=== PATIENT | female | born 1985 | race Asian ===

== ENCOUNTER → 2020-03-18 10:04 | Outpatient (CLI) | payer BC, SELFPAY ==
[2020-03-18 09:35] VITALS: BMI 37.9
[2020-03-18 12:51] LABS: Thyroid Stim Hormone (TSH) 1.95 uIU/mL (0.358-3.74)
== END ==
PROVIDERS: PCP Student in an Organized Health Care Education/Training Program; Referring Provider Internal Medicine Endocrinology, Diabetes & Metabolism; Visit Provider Internal Medicine Endocrinology, Diabetes & Metabolism
DX: E03.8 Other specified hypothyroidism (principal); E06.3 Autoimmune thyroiditis
CPT/HCPCS: 36415; 84439; 84443

== ENCOUNTER → 2021-07-22 09:51 | Outpatient (CLI) | payer BC, SELFPAY ==
[2021-07-22 12:00] LABS: Hematocrit 38.4 % (37-47); Hemoglobin 12.4 g/dL (12.0-15.0)
[2021-07-22 12:23] LABS: Vitamin B12 1049 pg/mL (211-911); Vitamin D,25 Hydroxy 54.3 ng/mL
[2021-07-22 12:24] LABS: Ferritin 63 ng/mL (8-252); T4 Free Direct 1.27 ng/dL (0.76-1.46); Thyroid Stim Hormone (TSH) 0.66 uIU/mL (0.358-3.74)
== END ==
PROVIDERS: PCP Student in an Organized Health Care Education/Training Program; Referring Provider Internal Medicine Endocrinology, Diabetes & Metabolism; Visit Provider Internal Medicine Endocrinology, Diabetes & Metabolism
DX: E03.8 Other specified hypothyroidism (principal); E06.3 Autoimmune thyroiditis; R53.81 Other malaise; R53.83 Other fatigue; E55.9 Vitamin D deficiency, unspecified
CPT/HCPCS: 36415; 82306; 82607; 82728; 84439; 84443; 85014; 85018

== ENCOUNTER → 2022-07-21 | Outpatient (CLI) | payer BC, SELFPAY ==
[2022-07-21 14:32] LABS: T4 Free Direct 1.31 ng/dL (0.76-1.46); Thyroid Stim Hormone (TSH) 0.48 uIU/mL (0.358-3.74)
== END | disposition home or self-care (01) ==
LOC: BIMLAB 10:30
PROVIDERS: PCP Student in an Organized Health Care Education/Training Program; Referring Provider Internal Medicine Endocrinology, Diabetes & Metabolism; Visit Provider Internal Medicine Endocrinology, Diabetes & Metabolism
DX: E03.8 Other specified hypothyroidism (principal); E06.3 Autoimmune thyroiditis
CPT/HCPCS: 36415; 84439; 84443

== ENCOUNTER 2023-01-19 22:03 | Emergency (ER) | payer BC, SELFPAY ==
[2023-01-19 22:04] VITALS: BP 194/101; PULSE 100; RESP 18; TEMP 36.4; O2SAT 99; BMI 23.9
--- NOTE | 2023-01-19 22:54 | CT_ITS ---
INDICATION: headache EXAMINATION: CT BRAIN - CT Head or Brain W/O Contrast Injection TECHNIQUE: Multiple axial images were obtained of the head without intravenous contrast. A radiation dose optimization technique was used for this scan. IV Contrast dosage and agent: None. RADIATION DOSAGE (If Supplied By Facility): CTDIvol = ( 44.99 ) mGy, DLP = ( 779.24 ) mGycm COMPARISON: FINDINGS: BRAIN PARENCHYMA: No intra- or extra-axial hemorrhage. No evidence of acute infarct. No intracranial mass or mass effect. There is preservation of the kelley/white matter interface. Posterior fossa structures are unremarkable. CSF SPACES: Appropriate for age. No hydrocephalus. Basal cisterns are patent. CALVARIUM, SKULL BASE, PARANASAL SINUSES AND MASTOID AIR CELLS: Clear. No discrete lytic or blastic abnormalities. ORBITS: Both globes, extraocular muscles, optic nerves and retrobulbar fat appear unremarkable. ASPECTS Score for Acute Strokes: 10 CT/Brain/Head without Contrast IMPRESSION: Negative Brain CT without contrast. Electronically Signed: Fabian Ponce MD at 23:55 EDT ,
[2023-01-19] MEDS: Ketorolac 30 MG/ML Syringe IV (23:15)
[2023-01-19] MEDS: DiphenhydrAMINE 50 MG/ML Syringe 25 MG IV (23:15)
[2023-01-19] MEDS: Metoclopramide 10 MG/2 ML Vial IV (23:15)
[2023-01-19 23:25] LABS: Absolute Lymphocyte Count 2.58 X10^3/uL (0.83-4.51); Absolute Neutrophil Count 6.5 X10^3/uL (2.0-7.7); Basophil# 0.09 X10^3/uL; Basophil% 0.9 % (0-1); Hematocrit 44.8 % (37-47); Hemoglobin 14.8 g/dL (12.0-15.0); Lymphocyte # 2.58 X10^3/ul (0.83-4.51); Lymphocyte % 26.1 % (19-41); Mean Corpuscular Hgb 28.2 pg (27.0-32.0); Mean Corpuscular Volume 85.3 fL (81-99); Mean Platelet Vol. 8.4 fl (6.2-12.0); Monocyte# 0.57 X10^3/uL; Monocyte% 5.8 % (0-10); NRBC Flagged by Analyzer 0 % (0-5); Neutrophil # 6.52 X10^3/uL (2.7-7.7); Neutrophil % 65.8 % (47-70); Platelet Count 329 K/mm3 (150-450); RBC Distribution Width CV 12.1 % (11.6-14.6); RBC Distribution Width SD 37.7 fl (35.1-43.9); Red Blood Count 5.25 M/mm3 (4.2-5.4); White Blood Count 9.9 K/mm3 (4.4-11.0)
[2023-01-19 23:42] LABS: Anion Gap 4 (5-15); BUN 11 mg/dL (7-18); BUN/Creat Ratio 15.7 RATIO (10-20); Calcium,Total 9.5 mg/dL (8.5-10.1); Chloride 100 mmol/L (98-107); EST Glomerular Filtration Rate 99 mL/min (>60); Est Glom Filt Rate - Afr Amer 119 mL/min (>60); Glucose 112 mg/dL (74-106); Potassium 3.3 mmol/L (3.5-5.1); Sodium Level 135 mmol/L (136-145); Troponin-I HS 4 pg/mL (3.0-54.0)
[2023-01-20 00:22] VITALS: BP 162/87; PULSE 64; RESP 14; O2SAT 100
[2023-01-20 00:35] VITALS: BP 146/82
--- NOTE | 2023-01-20 00:54 | EX.ED.DYSGE1 ---
HPI History of Present Illness Chief Complaint: General Illness Narrative Narrative: Patient is a 38-year-old female with past medical history of GERD and Scott's thyroiditis. She states she has been fighting sinus issues for quite some time. She finally went to her doctor and was placed on Afrin and Zithromax and Coricidin. She states she has a headache now and her blood pressure has been elevated throughout the day and has been reaching almost 200 systolically. She states she does not have a history of hypertension but she is concerned about a stroke because of the high value and with this comes in for evaluation [facility] Medical History GERD (gastroesophageal reflux disease) H/O blood clots Scott's thyroiditis IBS (irritable bowel syndrome) Malaise and fatigue Home Medications norgestimate 0.25 mg-ethinyl estradiol 35 mcg tablet (Sprintec (28)) 1 tab PO DAILY 07/22/21 [History Last Taken Unknown] omeprazole 40 mg capsule,delayed release 40 mg PO DAILY #30 caps 07/22/21 [Rx Last Taken Unknown] levothyroxine 88 mcg tablet 88 mcg PO DAILY #90 tabs 07/21/22 [Rx Last Taken Unknown] hydrocodone-acetaminophen 5-325mg 5mg-325mg 1 tab PO Q6H PRN PRN Pain 3 days #12 TABLETS 01/20/23 [Rx Last Taken Unknown] ondansetron 4 mg disintegrating tablet 4 mg PO TID PRN nausea and vomiting #21 tabs 01/20/23 [Rx Last Taken Unknown] Allergy/AdvReac Type Severity Reaction Status Date / Time morphine Allergy Vomiting/Di Verified 07/21/22 09:49 zziness Corticosteroids AdvReac Nausea Verified 01/19/23 22:04 (Glucocorticoids) [steroids] Family History Unknown Thyroid disorder Mother Thyroid disorder Surgical History H/O: Social History Smoking Status: Never smoker alcohol intake: never substance use type: does not use what type of physical activity do you participate in: yoga frequency: daily ROS ROS ED Constitutional Constitutional ED: Denies chills or fever(s) Eyes Eyes: Denies change in vision ENT ENT ED: Reports rhinorrhea and other Details: Positive sinus pain ; Denies sore throat Cardiovascular Cardiovascular: Denies chest pain Respiratory/Chest Respiratory/Chest: Denies cough or dyspnea Gastrointestinal Gastrointestinal: Denies abdominal pain, diarrhea, nausea or vomiting Genitourinary Genitourinary ED: Denies dysuria Musculoskeletal Musculoskeletal: Denies back pain, myalgias or neck pain Integumentary Denies rash Neurologic Neurologic: Reports headache(s); Denies paresthesias or weakness Hematologic/Lymphatic Hematologic/Lymphatic: Denies easy bleeding or easy bruising EXAM Physical Exam Const Vital Signs: 01/19/23 22:04 01/20/23 00:22 01/20/23 00:35 Temperature 97.6 F L Temperature Source Temporal Pulse Rate 100 64 Respiratory Rate 18 14 Blood Pressure 194/101 H 162/87 H 146/82 H Blood Pressure Mean 132 112 103 Pulse Ox 99 100 Oxygen Delivery Method Room Air Room Air 01/20/23 01:04 Temperature Temperature Source Pulse Rate 77 Respiratory Rate 15 Blood Pressure 126/82 H Blood Pressure Mean Pulse Ox 98 Oxygen Delivery Method Positive well nourished and well developed General Appearance ED: well developed HEENT Reports moist mucous membranes HEENT Narrative: Cobblestoning noted in the posterior pharynx consistent with sinus drainage but no secondary changes to suggest infection Minimal pain with palpation over top the maxillary ethmoid and frontal sinuses Eyes PERRL and EOMs intact bilaterally Neck supple Neck Narrative: No nuchal rigidity or meningeal signs present Resp normal respiratory effort and clear to auscultation bilaterally Cardio regular rate and regular rhythm GI normal to inspection, nondistended, normoactive bowel sounds, non-tender, non-distended and no masses GI Narrative: No pulsatile mass Auscultation: normoactive bowel sounds Palpation: soft Extremity normal to inspection Neuro oriented x3 and CN's II-XII intact bilaterally Neuro Narrative: Cranial nerves II through XII are grossly intact there are no focal neurologic deficits. No pronator drift no dysmetria no truncal ataxia. NIH stroke scale score of 0 Sensorium / Orientation: alert Psych mental status grossly normal Skin no rashes or lesions noted MDM MDM MDM Narrative Medical decision making narrative: Patient presented to the ER hypertensive but has a normal neurologic exam and no signs of hypertensive encephalopathy or endorgan damage by exam or history of present illness. Differential diagnosis includes new onset hypertension acute kidney injury sinusitis acute coronary syndrome and tension headache. Secondary to this a basic work-up was obtained. Labs showed a normal troponin at 4 with no signs of acute kidney injury or electrolyte deranged. Head CT revealed no clinically significant findings and after treatment of the patient's headache her blood pressure improved indicating that the hypertension was driven by pain and not truly hypertensive crisis. Therefore there is no need to start antihypertensive medications. On reevaluation the patient's symptoms have improved her neuro exam remains normal and with negative work-up and improvement of symptoms/BP she is otherwise safe for discharge History & Record Review Discussion w/independent historian: Patient and Significant other Lab Data Attestation: I reviewed the patient's lab results. Labs: Laboratory Results - last 24 hr 01/19/23 01/19/23 23:15 23:15 WBC 9.9 RBC 5.25 Hgb 14.8 Hct 44.8 MCV 85.3 MCH 28.2 MCHC 33.0 RDW Std Deviation 37.7 RDW Coeff of Shayan 12.1 Plt Count 329 MPV 8.4 Immature Gran % (Auto) 0.400 Neut % (Auto) 65.8 Lymph % (Auto) 26.1 [place] % (Auto) 5.8 Eos % (Auto) 1.0 Baso % (Auto) 0.9 Absolute Neuts (auto) 6.5 Absolute Lymphs (auto) 2.58 Nucleated RBC % 0 Sodium 135 L Potassium 3.3 L Chloride 100 Carbon Dioxide 31.0 Anion Gap 4 L BUN 11 Creatinine 0.70 Estim Creat Clear Calc 77.50 Est GFR (MDRD) Af Amer 119 Est GFR (MDRD) Non-Af 99 BUN/Creatinine Ratio 15.7 Glucose 112 H Calcium 9.5 Troponin I High Sens 4 Radiography Diagnostic Testing: Clinical Impression(s) from Imaging Studies Brain CT 01/19/23 22:54 IMPRESSION: Negative Brain CT without contrast. 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, Sinusitis, Cephalgia Instructions: Blood Pressure Check Steps, ED Hypertension, To Be Confirmed Prescriptions: New ondansetron 4 mg tablet,disintegrating 4 mg PO TID PRN (Reason: nausea and vomiting) Qty: 21 0RF hydrocodone-acetaminophen 5-325 mg tablet 1 tab PO Q6H PRN PRN (Reason: Pain) 3 Days Qty: 12 0RF No Action norgestimate-ethinyl estradiol [Sprintec (28)] 0.25-35 mg-mcg tablet 1 tab PO DAILY omeprazole 40 mg capsule,delayed release(DR/EC) 40 mg PO DAILY Qty: 30 1RF levothyroxine 88 mcg tablet 88 mcg PO DAILY Qty: 90 1RF Primary Care Provider: HIMANSHU MCNEIL Referrals: HIMANSHU MCNEIL [Other] Activity Restrictions/Additional Instructions: Your work-up today shows no signs of cardiac kidney or neurologic damage from the blood pressure being elevated. I do feel is related to pain response and not true hypertension. Continue to monitor your blood pressure and return to the ER should you have any further concerns Disposition Disposition: Home, Self Care Discharge Date/Time: 01/20/23 01:05
[2023-01-20 01:04] VITALS: BP 126/82; PULSE 77; RESP 15; O2SAT 98
== END 2023-01-20 01:05 | disposition home or self-care (01) ==
PROVIDERS: Emergency Provider Emergency Medicine; Visit Provider Emergency Medicine
DX: I10 Essential (primary) hypertension (principal); E06.3 Autoimmune thyroiditis; J32.9 Chronic sinusitis, unspecified; R51.9 Headache, unspecified; E03.9 Hypothyroidism, unspecified; K21.9 Gastro-esophageal reflux disease without esophagitis; Z79.890 Hormone replacement therapy; Z79.899 Other long term (current) drug therapy
CPT/HCPCS: 70450; 80048; 84484; 85025; 93005; 96374; 96375; 99283; J7050; A4216

== ENCOUNTER → 2023-02-02 | Outpatient (CLI) | payer BC, SELFPAY ==
--- NOTE | 2023-02-02 11:43 | US_ITS ---
STUDY: THYROID ULTRASOUND REASON FOR EXAM: Female, 38 years old. Hypothyroidism. History of Scott''s disease. TECHNIQUE: Ultrasound evaluation of the thyroid was performed with real-time and static kelley-scale imaging. COMPARISON: None. FINDINGS: RIGHT LOBE: The right lobe of the thyroid gland measures 4.8 cm x 1.6 cm x 2 cm. There is a heterogeneous echotexture. There are no demonstrated solid, cystic or complex lesions. LEFT LOBE: The left lobe of the thyroid gland measures 4.3 cm x 1.7 cm x 1.7 cm. There is a heterogeneous echotexture. There are no demonstrated solid, cystic or complex lesions. ISTHMUS: The isthmus is enlarged and measures 8.8 mm. The regional lymph nodes are normal. US/Thyroid IMPRESSION: Diffuse heterogeneous appearance of both lobes of the thyroid gland. Enlarged isthmus. Electronically Signed: Ian Stoner MD at 13:52 EDT ,
== END | disposition home or self-care (01) ==
LOC: US 11:42
PROVIDERS: Referring Provider Internal Medicine Endocrinology, Diabetes & Metabolism; Visit Provider Internal Medicine Endocrinology, Diabetes & Metabolism
DX: E03.8 Other specified hypothyroidism (principal); E06.3 Autoimmune thyroiditis
CPT/HCPCS: 76536

== ENCOUNTER → 2024-07-21 | Outpatient (CLI) | payer BC, SELFPAY ==
[2024-07-21 16:51] LABS: T4 Free Direct 0.94 ng/dL (0.76-1.46)
--- OUTSIDE RECORDS SUMMARY | 2024-07-21 18:31 | XMS RPT_ITS | CCD ---
Author Organization [facility] [employer]NIC[employer] [facility] Care Team Providers Care Residential Property Manager Name Role Phone PROVIDER, UNKNOWN Attending Unavailable PROVIDER, UNKNOWN Admitting Unavailable PATIENT, SELF Referring Unavailable Allergies Allergy Classification Reported Allergen(s) Allergy Type Date of Onset Reaction(s) Facility (1 source) Morphine; Translations: [MORPHINE] Drug Allergy 03-13-2018 [facility] [employer] Rep[facility] Encounters Encounter Date Encounter Type Care Provider Facility Start: 05-05-2019 End: 05-05-2019 ambulatory UNKNOWN PROVIDER Facility:[facility] Procedures Date Procedure Procedure Detail Performing Clinician Start: 05-05-2019 Assay of thyroid sti mulating hormone tsh UNKNOWN PROVIDER Payers Date Payer Category Payer Unknown 1984 Unknown [id number] Summary Purpose Family History No Family History Records Found Advance Directives No Advanced Directives Records Found Additional Source Comments INFORMATION SOURCE (unrecogn ized section and content) DATE CREATED AUTHOR 11/17/2021 [employer] [facility] FOR RECORDS PERTAINING TO PATIENTS WHO ARE OR HAVE BEEN ENROLLED IN A CHEMICAL DEPENDENCY/SUBSTANCEABUSE PROGRAM, SOME INFORMATION MAY BE OMITTED. This clinical summary was aggregated from multiple sources. Caution should be exercised in using it in the provision of clinical care. This summary normalizes information from multiple sources, and as a consequence, information in this document may materially change the coding, format and clinical context of patient data. In addition, data may be omitted in some cases. CLINICAL DECISIONS SHOULD BE BASED ON THE PRIMARY CLINICAL RECORDS. [employer] provides no warranty or guarantee of the accuracy or completeness of information in this document.
== END | disposition home or self-care (01) ==
LOC: BIMLAB 14:23
PROVIDERS: PCP Internal Medicine Endocrinology, Diabetes & Metabolism; Referring Provider Internal Medicine Endocrinology, Diabetes & Metabolism; Visit Provider Internal Medicine Endocrinology, Diabetes & Metabolism
DX: E03.8 Other specified hypothyroidism (principal); E06.3 Autoimmune thyroiditis
CPT/HCPCS: 36415; 84439; 84443

== ENCOUNTER 2025-09-15 10:16 | Day surgery (SDC) | payer OTHER, SELFPAY ==
--- NOTE | 2025-09-07 12:27 | PCM.HP.BLA ---
History and Physical Date of Admission: 09/15/25 Expand All Collapse All Pre-Op History and Physical HPI: The patient is a 40 year old female presenting for pre-operative visit. She is scheduled for TLH, Bilateral salpingectomy, CYSTO, for fibroid uterus, Dysmenorrhea, Pelvic pain in female on 09/15/25. Procedure discussed along with risks, benefits and complications. Other alternatives discussed for management. Consent form signed? Yes. Past Medical History PAST MEDICAL HISTORY Diagnosis Date ? Allergic rhinitis, cause unspecified Allergic rhinitis ? Scott's thyroiditis 11/09/2016 Hyperthyroidism ? Hyperthyroidism 11/09/2016 ? Hypothyroid ? 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 Mild intermittent asthma without complication (HCC) 02/23/2020 PAST SURGICAL HISTORY PAST SURGICAL HISTORY Procedure Laterality Date ? DELIVERY ONLY 2009 , low transverse CURRENT MEDICATIONS Current Outpatient Medications Medication Sig Dispense Refill ? Norethin Kana-Eth Estrad-FE (10/13, ,) 1 mg-20 mcg (21)/75 mg (7) per tablet Take 1 tablet by mouth once daily. Take one active pill daily- discard placebo pills take continuously 84 tablet 4 ? MAGNESIUM ORAL Take 50 mcg by mouth. ? metoprolol succinate ER (TOPROL XL) 25 mg 24 hr tablet Take 25 mg by mouth once daily. ? amLODIPine (NORVASC) 5 mg tablet Take 5 mg by mouth once daily. ? albuterol HFA (PROVENTIL HFA, VENTOLIN HFA) 90 mcg/actuation inhaler Inhale 1 Puff as instructed every 6 hours as needed. 1 Inhaler 0 ? levothyroxine (LEVOXYL) 88 mcg tablet Take 1 tablet by mouth once daily. Take on empty stomach. For Thyroid 90 tablet 0 No current facility-administered medications for this visit. ALLERGIES: Hctz [Hydrochlorothiazide], Morphine, and Steroids [Corticosteroids (Glucocorticoids)] PERSONAL HISTORY: [Social History] [Social History] Tobacco Use ? Smoking status: Never ? Smokeless tobacco: Never Vaping Use ? Vaping status: Never Used Substance Use Topics ? Alcohol use: Yes Comment: Occasionally once every 2-3 months ? Drug use: No FAMILY HISTORY: Family History FAMILY HISTORY Problem Relation Age of Onset ? Thyroid Mother goiter ? Stroke Father 50 ? Lipids Father ? No Known Problems Brother ? Cancer Maternal Grandfather Lung/Smoker ? Diabetes Paternal Aunt ? Thyroid Paternal Aunt REVIEW OF SYMPTOMS: negative except as noted above PHYSICAL EXAMINATION: VITALS: Blood pressure 128/70, weight 61.7 kg (136 lb), last menstrual period 03/20/2025. GENERAL: The patient is well nourished, well hydrated in no acute distress. , The patient is oriented to time, place, and person. NECK: full range of motion LUNGS: Clear to auscultation bilaterally. no wheezes, rhonchi or rales HEART: Regular rate and rhythm, Normal heart sounds, and No murmurs or gallops GENITALIA: Normal external genitalia, Urethral meatus normal, Bladder nontender, normal vagina and normal vaginal tone, normal cervix, and perineum WNL IMPRESSION: 40yo with Fibroid uterus, dysmenorrhea, Pelvic pain PLAN: TLH, bilateral salpingectomy, Cysto Pt has been counseled on risks/benefits and alternatives of surgery including but not limited to anesthesia, bleeding, infection, injury to pelvic structures including bowel, bladder, ureters and vessels. Pt wishes to proceed with surgery at this time. Pre and post op instructions reviewed I have reviewed and updated past medical and surgical history, medications and allergies Janki Rubi MD
--- NOTE | 2025-09-11 06:45 | EKG12_ITS ---
Test Reason : PRE OP Blood Pressure : */* mmHG Vent. Rate : 70 BPM Atrial Rate : 70 BPM P-R Int : 106 ms QRS Dur : 78 ms QT Int : 418 ms P-R-T Axes : 11 95 71 degrees QTcB Int : 451 ms Sinus rhythm with short NH Rightward axis Borderline ECG Confirmed by Semaj Banks ([id number]), editor in chief newspaper MICHELLE COPELAND ([id number]) on 09/11/2025 9:46:41 AM Referred By: Janki Soriano Confirmed By: Semaj Banks
[2025-09-11 07:48] LABS: Hematocrit 41.2 % (37-47); Hemoglobin 13.6 g/dL (12.0-15.0); Immature Granulocytes Count 0.010 X10^3/uL (0.0-0.0); Mean Corp Hgb Conc 33.0 g/dL (32-36); Mean Corpuscular Volume 84.1 fL (81-99); Mean Platelet Vol. 9.2 fl (6.2-12.0); NRBC Flagged by Analyzer 0 % (0-5); Platelet Count 191 K/mm3 (150-450); RBC Distribution Width CV 12.9 % (11.6-14.6); RBC Distribution Width SD 39.8 fl (35.1-43.9); Red Blood Count 4.90 M/mm3 (4.2-5.4); White Blood Count 7.5 K/mm3 (4.4-11.0)
[2025-09-11 08:26] LABS: Anion Gap 12 (5-15); BUN 15 mg/dL (4-19); BUN/Creat Ratio 19.8 RATIO (10-20); Calcium,Total 9.3 mg/dL (7.6-11.0); Carbon Dioxide 23.2 mmol/L (21.0-32.0); Chloride 104 mmol/L (98-108); Glucose 89 mg/dL (70-99); Potassium 3.7 mmol/L (3.3-5.1)
[2025-09-11 08:37] LABS: Magnesium 2.4 mg/dL (1.5-2.2)
--- NOTE | 2025-09-11 11:36 | PAT.ANE_ITS ---
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 When Was Last Pacemaker Check QUESTION #4 FULL TEXT: You/Your Family Experience fever (hyperthermia) with Anesthesia Last Oral Intake Last Oral intake: Last Oral Intake NPO since Meds taken in AM with sips of water? Meds patient instructed to take am of surgery PONV PONV - live games dealer: PONV - live games dealer Female Yes 09/08/25 13:17 HX of Motion Sickness No 09/08/25 13:17 HX of N/V After Surgery No 09/08/25 13:17 Non-Smoker Yes 09/08/25 13:17 Duration of Surgery greater Yes 09/08/25 13:17 than 60 minutes Number of Risk Factors 3 09/08/25 13:17 PONV Score Moderate Risk 09/08/25 13:17 Height & Weight Height & Weight: Anesthesia: Height & Weight Height 5 ft 07/17/25 13:05 Respiratory Assessment Respiratory Assessment - live games dealer: Respiratory Tract Infection Hx - live games dealer Hx Respiratory Tract Infection No 09/08/25 13:17 STOP Sleep Apnea STOP Sleep Apnea - live games dealer: STOP Sleep Apnea - live games dealer Hx Hypertension Yes: CONTROLLED ON MED 09/08/25 13:17 Hx Sleep Apnea No 09/08/25 13:17 CPAP BIPAP Do you snore loudly (louder No 09/08/25 13:17 than talking or can be heard Do you often feel tired/ No 09/08/25 13:17 fatigued/ sleepy during daytime? Has anyone observed you stop No 09/08/25 13:17 breathing during sleep? STOP Results Negative 09/08/25 13:17 QUESTION #5 FULL TEXT : Do you snore loudly (louder than talking or can be heard through closed doors)? Tobacco Use History Tobacco Use History - live games dealer: Tobacco Use History - live games dealer Tobacco Use Smoking Status Never smoker 09/08/25 13:17 Hx Tobacco Use No 09/08/25 13:17 Years Smoking Packs Smoked per Day Smoking Cessation Date was within the last 15 years Hx Smoking Cessation Date Hx Smoking Cessation Counseling Hematologic Medial History Hematologic Hx - live games dealer: Hematologic Medical Hx - documentation billing clerk Hx of Blood Transfusion Yes 09/08/25 13:17 Hx of Transfusion in last 3 No 09/08/25 13:17 Months Date of Last Transfusion (if within last 3 months) Ever experience any problems No 09/08/25 13:17 with transfusion(s)? Specify any problems Hx of Preganancy in last 3 No 09/08/25 13:17 Months Nurse Filling Out Transfusion VCHRISTIN 09/08/25 13:17 & Questions: Date: 09/08/25 09/08/25 13:17 Time: 13:18 09/08/25 13:17 Patient unable to answer at this time (ie. confused, unrespo /Reproduction History /Reproductive History - live games dealer: /Reproductive Hx- live games dealer Hx Now No 09/08/25 13:17 Gestational Age (in weeks): EDC: Hx Hx Para Hx Section SAB No 09/08/25 13:17 Does the father of the baby or his family experience fever w Father of the baby Malignant Hypertension history comment [facility] Medical History (Updated 09/08/25 @ 13:16 by Palma Viera) Thyroid disease Anemia Migraine headache Syncope Gastric reflux Non-smoker Asthma Shortness of breath on exertion History of pain when walking History of edema Hypertension Chest pain Malaise and fatigue GERD (gastroesophageal reflux disease) H/O blood clots Scott's thyroiditis IBS (irritable bowel syndrome) Home Medications ?Medication ?Instructions ?Recorded ?Last Taken ?Type amlodipine 5 mg tablet 5 mg PO DAILY 07/20/23 Unkno wn History albuterol sulfate 90 mcg/actuation 2 puff inhalation Q 6 PRN wheezing 07/17/25 Unknown History aerosol inhaler omeprazole 20 mg capsule,delayed 20 mg PO QDAY 5 Unknown History release levothyroxine 75 mcg tablet 75 mcg PO .COMPLEX #96 tab s 07/23/25 Unknown Rx metoprolol succinate 25 mg 25 mg PO DAILY 12/16/25 Unk nown History tablet,extended release 24 hr norethindrone 1 mg-ethinyl 1 tab PO DAILY 09/08/25 Unk nown History estradiol 20 mcg (21)-iron 75 mg (7) tablet (No Fe 10/13 (28)) Allergy/AdvReac Type Severity Reaction Status Date / Time hydrochlorothiazide Allergy Severe Hives Verified 09/08/25 12:58 morphine Allergy Vomiting/Di Verified 09/08/25 12:58 zziness Corticosteroids AdvReac Nausea Verified 09/08/25 12:58 (Glucocorticoids) (steroids) Family History Unknown Thyroid disorder Mother Thyroid disorder Surgical History (Updated 09/08/25 @ 13:16 by Palma Viera) Hx of surgical procedure H/O: Social History Smoking Status: Never smoker alcohol intake: never substance use type: does not use what type of physical activity do you participate in: yoga frequency: daily Audit: Pertinent Findings Pertinent Findings EKG Perinent findings: 09/11/2025. Sinus rhythm with short NV. Right axis deviation. Compared to EKG of December 2022, prolonged QT is no longer seen. Recommendation Anesthesia Recommendation Anesthesia recommendation: OPTIMIZED for anesthesia
[2025-09-15] VITALS (13 sets, daily range): BP systolic 114–138; BP diastolic 55–84; PULSE 60–92; RESP 12–16; TEMP 36.1–36.9; O2SAT 96–100; BMI 26.0
[2025-09-15 10:42] LABS: Internal QC Validated? YES +Cl - CLEAR BKGD; Pregnancy, Urine Negative Negative
[2025-09-15] MEDS: metroNIDAZOLE 500 MG/100 ML BAG 100 MG IV (10:58)
[2025-09-15] MEDS: Magnesium 1 GM over 15 mins IV (11:01)
[2025-09-15] MEDS: Lactated Ringers 1,000 ML 40 ML IV (11:01)
[2025-09-15] MEDS: Scopolamine 1mg/72hr Patch 1 PATCH TD (11:01)
--- NOTE | 2025-09-15 11:31 | PRE.ANES_ITS ---
ASA Classification* ASA Classification ASA Classification: 2 Assessment & Plan Anesthesia* Anesthesia Assessment Anesthesia Assessment: Discussed sedation and/or anesthesia options, risks, benefits, and alternatives with patient/parents/legal guardian/POA. Questions invited. The patient/parents/legal guardian/POA seems to understand and agrees to proceed with anesthesia plan. Reviewed the physical assessment, medical history, allergy history and patient home medications list prior to surgery/procedure/anesthetic and documented any changes. Performed airway and anesthesia risk assessments. Anesthesia Type Anesthesia Type: General History Source History Obtained from:: Patient and Chart Anesthesia Focused Assessment* Temperature: 98.4 F Pulse Rate: 75 Blood Pressure: 130/84 Respiratory Rate: 16 Pulse Ox: 100 Oxygen Delivery Method: Room Air Airway Assessment Mouth opens: >3 cm Mallampati Score: III Teeth Condition: Caps/Crowns (Patient has 1 crown. It is tight.) Neck Range of motion (ROM): Limited ROM (Somewhat Decreased) Labs Anesthesia Preop lab: CBC WBC, (4.4-11.0) 7.5 K/mm3 09/11/25, 06:49 RBC, (4.2-5.4) 4.90 M/mm3 09/11/25, 06:49 Hgb, (12.0-15.0) 13.6 g/dL 09/11/25, 06:49 Hct, (37-47) 41.2 % 09/11/25, 06:49 Plt Count, (150-450) 191 K/mm3 09/11/25, 06:49 CHEMISTRY Potassium, (3.3-5.1) 3.7 mmol/L 09/11/25, 06:49 Sodium, (133-145) 139 mmol/L 09/11/25, 06:49 Magnesium, (1.5-2.2) 2.4 mg/dL H 09/11/25, 06:49 BUN, (4-19) 15 mg/dL 09/11/25, 06:49 Creatinine, (0.70-1.20) 0.75 mg/dL 09/11/25, 06:49 Glucose, (70-99) 89 mg/dL 09/11/25, 06:49 TSH, (0.300-4.200) 6.930 uIU/mL H 09/11/25, 06:49 COAG Urine Test Negative Negative Today, 10:30 Pre-Assessment Diagnosis/Proposed Procedure Planned Operative Procedure(s): (B) Hysterectomy,TLH cystoscopy Anesthesia History Anesthesia History - clerical methods analyst: Anesthesia History - clerical methods analyst Hx Hospitalization No 09/08/25 13:17 Any Problems With Anesthesia No 09/08/25 13:17 Cholinesterase deficiency No 09/08/25 13:17 You/Your Family Experience No 09/08/25 13:17 fever (hyperthermia) with Relationship Recent Exposure to Contagious No 09/15/25 10:47 Disease Does patient have nerve No 09/08/25 13:17 stimulator Patient instructed to have device shut off --Does patient have Pacemaker No 09/15/25 10:47 or ICD? When Was Last Pacemaker Check QUESTION #4 FULL TEXT: You/Your Family Experience fever (hyperthermia) with Anesthesia Last Oral Intake Last Oral intake: Last Oral Intake NPO since 10:00 09/15/25 10:47 Meds taken in AM with sips of Yes 09/15/25 10:47 water? Meds patient instructed to take am of surgery Any additional information?: Yes NPO since: 10:00 (Patient took her last Ensure at 10 AM.) Meds taken in AM with sips of water?: Yes PONV PONV - clerical methods analyst: PONV - clerical methods analyst Female Yes 09/08/25 13:17 HX of Motion Sickness No 09/08/25 13:17 HX of N/V After Surgery No 09/08/25 13:17 Non-Smoker Yes 09/08/25 13:17 Duration of Surgery greater Yes 09/08/25 13:17 than 60 minutes Number of Risk Factors 3 09/08/25 13:17 PONV Score Moderate Risk 09/08/25 13:17 Height & Weight Height & Weight: Anesthesia: Height & Weight Height 5 ft 09/15/25 10:47 Weight: 60.5 kg 09/15/25 10:47 Body Mass Index (BMI) 26.0 09/15/25 10:47 Respiratory Assessment Respiratory Assessment - clerical methods analyst: Respiratory Tract Infection Hx - clerical methods analyst Hx Respiratory Tract Infection No 09/08/25 13:17 STOP Sleep Apnea STOP Sleep Apnea - clerical methods analyst: STOP Sleep Apnea - clerical methods analyst Hx Hypertension Yes: CONTROLLED ON MED 09/08/25 13:17 Hx Sleep Apnea No 09/08/25 13:17 CPAP BIPAP Do you snore loudly (louder No 09/08/25 13:17 than talking or can be heard Do you often feel tired/ No 09/08/25 13:17 fatigued/ sleepy during daytime? Has anyone observed you stop No 09/08/25 13:17 breathing during sleep? STOP Results Negative 09/08/25 13:17 QUESTION #5 FULL TEXT : Do you snore loudly (louder than talking or can be heard through closed doors)? Tobacco Use History Tobacco Use History - clerical methods analyst: Tobacco Use History - clerical methods analyst Tobacco Use Smoking Status Never smoker 09/08/25 13:17 Hx Tobacco Use No 09/08/25 13:17 Years Smoking Packs Smoked per Day Smoking Cessation Date was within the last 15 years Hx Smoking Cessation Date Hx Smoking Cessation Counseling Hematologic Medial History Hematologic Hx - clerical methods analyst: Hematologic Medical Hx - noodle maker Hx of Blood Transfusion Yes 09/08/25 13:17 Hx of Transfusion in last 3 No 09/08/25 13:17 Months Date of Last Transfusion (if within last 3 months) Ever experience any problems No 09/08/25 13:17 with transfusion(s)? Specify any problems Hx of Preganancy in last 3 No 09/08/25 13:17 Months Nurse Filling Out Transfusion VCHRISTIN 09/08/25 13:17 & Questions: Date: 09/08/25 09/08/25 13:17 Time: 13:18 09/08/25 13:17 Patient unable to answer at this time (ie. confused, unrespo /Reproduction History /Reproductive History - clerical methods analyst: /Reproductive Hx- clerical methods analyst Hx Now No 09/08/25 13:17 Gestational Age (in weeks): EDC: Hx Hx Para Hx Section SAB No 09/08/25 13:17 Does the father of the baby or his family experience fever w Father of the baby Malignant Hypertension history comment Active Medications Active Medications: Current Medications Generic Name Dose Route Start Last Admin Trade Name Freq PRN Reason Stop Dose Admin Lactated Ringer's 1,000 mls @ 40 mls/hr 09/15/25 11:30 09/15/25 11:01 IV 40 mls/hr .Q25H YANNICK Administration Cefazolin Sodium 2 gm/ Sodium 110 mls @ 150 mls/hr 09/15/25 11:30 Chloride IV 09/15/25 12:13 INTRAOP ONE Lactated Ringer's 1,000 mls @ 70 mls/hr 09/15/25 11:30 IV .[id number] YANNICK Metronidazole 500 mg in 100 mls @ 100 mls/hr 09/15/25 11:30 09/15/25 10:58 Flagyl IV 09/15/25 12:29 100 mls/hr INTRAOP ONE Administration Magnesium Sulfate 1 gm/ 102 mls @ 408 mls/hr 09/15/25 12:30 09/15/25 11:01 Dextrose IV 09/15/25 12:44 408 mls/hr PREOP ONE Administration Insulin Human Lispro 0 unit 09/15/25 11:30 09/15/25 11:04 Insulin Lispro 100 Unit/Ml Insuln.Pen SC 09/15/25 18:00 2 u Q4H PRN PRN Administration BG >/= 180, SEE PROTOCOL Protocol PFSH Medical History Thyroid disease Anemia Migraine headache Syncope Gastric reflux Non-smoker Asthma Shortness of breath on exertion History of pain when walking History of edema Hypertension Chest pain Malaise and fatigue GERD (gastroesophageal reflux disease) H/O blood clots Scott's thyroiditis IBS (irritable bowel syndrome) Home Medications ?Medication ?Instructions ?Recorded ?Last Taken ?Type amlodipine 5 mg tablet 5 mg PO DAILY 07/20/2309/15 06:00 History albuterol sulfate 90 mcg/actuation 2 puff inhalation Q 6 PRN wheezing 07/17/25 Unknown History aerosol inhaler omeprazole 20 mg capsule,delayed 20 mg PO QDAY 5 09/15/25 06:00 History release levothyroxine 75 mcg tablet 75 mcg PO .COMPLEX #96 tab s 07/23/25 09/15/25 06:00 Rx metoprolol succinate 25 mg 25 mg PO DAILY 09/08/25 06:00 History tablet,extended release 24 hr norethindrone 1 mg-ethinyl 1 tab PO DAILY 09/08/25 Unk nown History estradiol 20 mcg (21)-iron 75 mg (7) tablet (No Fe 10/13 (28)) Allergy/AdvReac Type Severity Reaction Status Date / Time hydrochlorothiazide Allergy Severe Hives Verified 09/08/25 12:58 morphine Allergy Vomiting/Di Verified 09/08/25 12:58 zziness Corticosteroids AdvReac Nausea Verified 09/08/25 12:58 (Glucocorticoids) (steroids) Family History Unknown Thyroid disorder Mother Thyroid disorder Surgical History Hx of surgical procedure H/O: Social History Smoking Status: Never smoker alcohol intake: never substance use type: does not use what type of physical activity do you participate in: yoga frequency: daily Review of Systems (Anesthesia) ROS Narrative System reviewed and no additional complaints, except as documented. Physical Exam Resp clear to auscultation bilaterally
--- NOTE | 2025-09-15 11:54 | OP.PCM_ITS ---
Operative Report (Standard) Operative Information Date of Procedure: 09/15/25 Pre-Operative Diagnosis: Dysmenorrhea, Fibroid Uterus, Pelvic pain Post-Operative Diagnosis: same Surgery/Procedure Performed: TLH, Bilateral salpinegectomy, Cysto media monitor: Yes Vice President [employer]: Henny Espinoza Tasks completed by fws faculty assistant: Opening & closing, Dissecting tissue, Removing tissue, Insert Trochanter and Retracting Additional assistant gm of content & delivery?: No Type of Anesthesia: General and Local RN Documented Start/Stop Times: Operation Date: 09/15/25 12:30 Case Time Into Pre-Op 09/15/25 10:18 Anesthesia Start 09/15/25 11:58 Into Room 09/15/25 11:58 Procedure Start 09/15/25 12:24 Procedure Start Time: 12:24 Procedure Stop Time: 14:01 Select all DRAINS/GRAFTS/IMPLANTS that apply: None Special Medications: 0.5% marcaine Estimated Blood Loss: 50 Fluids Replaced: 1400 Specimen collected: Yes Description of specimen(s) removed: Uterus, cervix, bilateral fallopian tubes Description of surgery: Patient take to OR and prepped and draped in usual sterile fashion in dorsal lithotomy position with her arms tucked in a neurologically safe and neutral position. The uterus sounded to 7.5 cm. The trailer truck driver uterine manipulator was sutured into place at 3/9:00 position and zapata were placed. Attention was turned to the abdomen. All port sites were infiltrated with 0.5% marcaine before the incisions were made. The anterior abdominal wall was tented up with towel clamps and using a direct entry approach a 5 mm intraumbilical port was placed. Intraperitoneal placement was confirmed with the laparoscope and the pneumoperitoneum was created. The patient was placed in Trendelenburg and 5 mm right and left lower quadrant ports were placed under direct visualization. Air seal rapid insufflator was used. The bowel was swept away. Ovaries appeared normal. Large fibroid in left lower broad ligament extending to pelvic side wall. Small lower anterior uterine fibroid noted. The mesosalpinx starting at fimbriated end were grasped, clamped, sealed and transected with the Ligasure. The round ligaments were divided. The anterior peritoneum was dissected down to create the bladder flap with blunt dissection and the LigaSure. At this time the smaller fibroid was dissected off and the large fibroid was dissected and from left side of uterus. The uterine arteries were isolated, clamped, sealed and cut. There was minimal back bleeding from the uterus. Straight bites on uterine artieries performed to drop them off the cuff. The manipulator cup was used as guide to create colpotomy using monopolar tip of ligasure. once specimen was removed attention was turned to vaginal portion. The specimen was handed off as well as the fibroids- The cuff was closed with interrupted 0-vicryl figure of 8 sutures. Cystoscopy was performed bilateral ureters were visualized with good efflux. bladder was intact. zapata replaced and sponge stick placed in vagina. The pneumoperitoneum was recreated and the cuff and pedicles were hemostatic. Hemoblast was placed over cuff and pedicles. The skin incisions were closed with skin glue and 3-0 monocryl in the LLQ port site. The vaginal sweep was completed by me. Grafts/Implants Used: none Surgical Findings: large left lower broad ligament fibroid extending to pelvic side wall. Smaller fibroid in anterior lower uterine segment. Complications Complications: No Admit VTE Documentation VTE Present on Admission: Yes VTE Mechan Device Prophylaxis: SCD's VTE Pharm Prophylaxis ordered?: Yes
--- NOTE | 2025-09-15 11:57 | PCM.DC ---
Discharge Instructions DC O2, CPAP, BIPAP needs Home O2 Discharge instructions: No Dressing / Incision Discharge Activity: May Not Drive (while taking narcotics. may drive when pain controlled. ) and May Shower May shower in (days): 1 May resume sexual activity in: 6-8 weeks Weight Bearing Status: Full weight bearing Lifting Restrictions: 20 Additional Activity Instructions:: NOTHING IN THE VAGINA x 6-8 weeks. Dressing / Incision Call your doctor if your incision/area has: Continuous Slow Oozing, Sudden Increased Bleeding, Increased Pain/ Swelling, Increased Redness, Foul Smelling Discharge and Swelling at the incision site Call your doctor if you observe: Fever of 101 or Higher, Inability to have a bowel movement, Using more than 1 pad per hour and Uncontrolled pain Change Dressing in: leave in place till F/U (you have skin glue over incision sites- do not pick off) Cleanse incision/area with: Soap & Water, Keep Dressing Clean & Dry and - (you may let soap and water run over incision sites and dab dry. ) Follow Up Care Please Follow Up With: Janki Soriano MD When: 1-2 weeks as scheduled for post op visit and then at 6 weeks post op Test Results: Test results from this visit will be discussed in further detail at your follow-up appointment, if applicable. Discharge Plan Admission Attending Provider: Janki Soriano Primary Care Provider: Edy Tony Consulting Providers: Ta [place] Instructions Print Language: [place] Citizen Discharge Orders/Prescriptions Prescriptions: New oxycodone 5 mg Tablet 5 mg PO Q6H PRN PRN (Reason: post op pain) 3 Days Qty: 10 0RF Continued omeprazole 20 mg capsule,delayed release(DR/EC) 20 mg PO QDAY metoprolol succinate 25 mg tablet extended release 24 hr 25 mg PO DAILY levothyroxine 75 mcg tablet 75 mcg PO .COMPLEX Qty: 96 3RF Rx Instructions: Frequency: QD, 1 1/2 every Discontinued norethindrone-e.estradiol-iron [No Fe 10/13 (28)] 1 mg-20 mcg (21)/75 mg (7) tablet 1 tab PO DAILY No Action amlodipine 5 mg tablet 5 mg PO DAILY Patient Comments: TAKE 1 TABLET BY MOUTH ONCE DAILY albuterol sulfate 90 mcg/actuation HFA aerosol inhaler 2 puff inhalation Q6 PRN (Reason: wheezing) Referrals / Follow Up: King Rudolph MD [Med Staff - Courtesy Staff, Endocrinology] Disposition Disposition (needs filled in before D/C Order can be placed): Home, Self Care
[2025-09-15] MEDS: Cefazolin 1 GM/5 ML Vial 2 GM IV (12:00)
[2025-09-15] MEDS: Lidocaine 1% (5 ml sdv) 5 ML Vial 10 ML IV (12:06)
--- NOTE | 2025-09-15 12:30 | HYST_PTH ---
PATIENT: EMBER CORTEZ LOC: [facility] U#:[id number] AGE/SX: 40/F ROOM: RE09/15/[address]: Dr. Janki Soriano, MDDOB: 1985 BED: DIS: 09/15/2025 SPEC #: [id number] RECD: 09/15/25 14:00 STATUS: BRITNEY MAK #: [id number] RODRIGO: 09/15/25 12:[address]: Janki Soriano DEPT: SURGICAL PATHOLOGY RECD BY: Negrito Powell ENTERED: 09/15/25 14:39 SP TYPE: HYSTERECT OTHR DR: MD Dr. Ta Vitale MD Tissues: A - Uterus, NOS Procedures: Surgery Specimen Level V HEADER OPERATION: ERAS, hysterectomy, TLH bilateral salpingectomy, cystoscopy PRE-OP DIAGNOSIS: Fibroid uterus, dysmenorrhea, pelvic pain TISSUE SUBMITTED: A. uterus, cervix, bilateral fallopian tubes, uterine fibroids x2 MICROSCOPIC DIAGNOSIS A. Uterus, cervix, fallopian tubes, hysterectomy and salpingectomy: - Cervix: chronic cervicitis. - Endometrium: proliferative phase. - Myometrium: adenomyosis, leiomyoma x2 (7.2 cm). - Bilateral Fallopian tubes: no specific pathologic change. MICROSCOPIC DESCRIPTION Slides are reviewed. GROSS DESCRIPTION A. Received in formalin labeled with the patient's name and date of . Designated as uterus, cervix, bilateral fallopian tubes, uterine fibroid x 2 is a 55 g, 7.1 x 4.0 x 3.0 cm uterus with detached adnexa and 2, separate leiomyomas (2.3 x 2.1 x 2.0 cm and 7.2 x 5.6 x 5.1 cm). The serosa is pink-red with a 1.0 x 0.8 cm anterior, full-thickness defect and a 0.4 x 0.3 cm full-thickness defect at the cornu. The attached cervix is campos-pink to purple-red with patchy congestion and measuring 2.5 x 2.4 cm; the 0.9 cm os is probe patent. The specimen is oriented using the presumed posterior peritoneal reflection and is inked as follows: [id number] Opening reveals that the previously described defect at the cornu spans to the fundal aspect of the endometrial canal. There is a 1.2 x 0.6 cm possible endometrial polyp within the anterior lower uterine segment. The 4.0 x 2.1 cm endometrial canal is lined by campos-pink, focally fibrotic endometrium that measures up to 0.1 cm thick. The myometrium is pale campos-pink and trabeculated measuring up to 1.9 cm thick. Sectioning of the leiomyomas reveals white, whirled cut surfaces with patchy edema throughout the larger leiomyoma. The bilateral pink fallopian tubes are fimbriated and measure 4.7 x 0.3 cm and 3.4 X 0.4 cm. There are 2 possible paratubal cysts involving one fallopian tube, 0.1 cm in greatest dimension. Quality Systems Specialist sections are submitted as follows: A1: Anterior/posterior cervixA2: Anterior endomyometrium with possible, LES polypA3: Anterior endomyometriumA4: Posterior endomyometriumA5-A6: Fallopian tubesA7: Smaller leiomyomaA8-A10: Larger leiomyoma VT 09/15/2025 CPT:[id number]
[2025-09-15] MEDS: fentaNYL 100 MCG/2 ML Ampul 200 MCG IV (14:19)
--- NOTE | 2025-09-15 14:25 | PCM.POST.ANE ---
Anesthesia: Postop Eval I Current Vital Signs Temperature: 97 F Pulse Rate: 80 Blood Pressure: 128/55 Respiratory Rate: 16 Pulse Ox: 100 Oxygen Delivery Method: Room Air Assessment Airway patent: Yes Spontaneous unlabored respirations: Yes Mental status: Awake and Calm nausea: No Vomiting: No Anesthesia Complication: No Fluid Hydration Crystalloid volume administer (ml): 1,400 Total IV fluid infused: 1,400 Progress Note Anesthesia document: Postop Eval 1 completed: Yes
[2025-09-15] MEDS: Lactated Ringers @ 70 MLS/HR 70 ML IV (16:03)
--- NOTE | 2025-09-15 18:30 | POSTOPAN2_ITS ---
Anesthesia Postop Eval I Sum Postop Eval Completion status Anesthesia document: Postop Eval 1 completed: Yes Anesthesia Postop Eval I Summary Anesthesia Postop Eval I Summary: Anesthesia Postop Eval I: Assessment Summary Airway patent Yes 09/15/25 14:26 ELECTRICAL PROSPECTOR.[email or web address] Spontaneous unlabored Yes 09/15/25 14:26 ELECTRICAL PROSPECTOR.CAROLOBY respirations Mental status Awake,Calm 09/15/25 14:26 ELECTRICAL PROSPECTOR.SKOBY nausea No 09/15/25 14:26 ELECTRICAL PROSPECTOR.SKOBY Vomiting No 09/15/25 14:26 ELECTRICAL PROSPECTOR.SKOBY Anesthesia Postop Eval I: Fluid Summary Crystalloid volume administer 1,400 09/15/25 14:26 ELECTRICAL PROSPECTOR.SKOBY (ml) Colloids volume administered ( ml) Blood Product volume administered (ml) Total IV fluid infused 1,400 09/15/25 14:26 ELECTRICAL PROSPECTOR.CAROLOBCyndie Anesthesia Postop Eval I: Summary Notes Anesthesia Complication No 09/15/25 14:26 ELECTRICAL PROSPECTOR.CAROLOBCyndie Anesthesia Complication Comment: Post-operative progress note Anesthesia: Postop Eval II Evaluation Mental status: Awake and Calm Pain Level: 2 nausea: No Vomiting: No Complications Anesthesia Complication: No
--- NOTE | 2025-09-15 18:30 | PCM.POSTANE2 ---
Anesthesia Postop Eval I Sum Postop Eval Completion status Anesthesia document: Postop Eval 1 completed: Yes Anesthesia Postop Eval I Summary Anesthesia Postop Eval I Summary: Anesthesia Postop Eval I: Assessment Summary Airway patent Yes 09/15/25 14:26 YOUTH [email or web address].[email or web address] Spontaneous unlabored Yes 09/15/25 14:26 YOUTH LEADER.CAROLOBY respirations Mental status Awake,Calm 09/15/25 14:26 YOUTH LEADER.[email or web address] nausea No 09/15/25 14:26 YOUTH LEADER.SKOBY Vomiting No 09/15/25 14:26 YOUTH LEADER.SKOBY Anesthesia Postop Eval I: Fluid Summary Crystalloid volume administer 1,400 09/15/25 14:26 YOUTH LEADER.SKOBY (ml) Colloids volume administered ( ml) Blood Product volume administered (ml) Total IV fluid infused 1,400 09/15/25 14:26 YOUTH LEADER.CAROLOBCyndie Anesthesia Postop Eval I: Summary Notes Anesthesia Complication No 09/15/25 14:26 YOUTH LEADER.CAROLOBCyndie Anesthesia Complication Comment: Post-operative progress note Anesthesia: Postop Eval II Evaluation Mental status: Awake and Calm Pain Level: 2 nausea: No Vomiting: No Complications Anesthesia Complication: No
== END 2025-09-15 17:30 | disposition home or self-care (01) ==
LOC: SDC 10:17 → AC 10:17
PROVIDERS: Anesthesiology; Internal Medicine Endocrinology, Diabetes & Metabolism; PCP Family Medicine Adult Medicine; Referring Provider Obstetrics & Gynecology; Visit Provider Obstetrics & Gynecology
PROC: 0UT94ZZ Resection of Uterus, Percutaneous Endoscopic Approach (ICD-10-PCS; CPT 58571; principal; 2025-09-15 12:10)
DX: D25.9 Leiomyoma of uterus, unspecified (principal); D28.2 Benign neoplasm of uterine tubes and ligaments; N94.6 Dysmenorrhea, unspecified; Z79.899 Other long term (current) drug therapy; Z79.890 Hormone replacement therapy; K21.9 Gastro-esophageal reflux disease without esophagitis; E06.3 Autoimmune thyroiditis; N72 Inflammatory disease of cervix uteri; N80.03 Adenomyosis of the uterus
CPT/HCPCS: 58571; 00840; 36415; 80048; 81025; 82962; 83735; 84439; 84443; 85025; 88307; 93005; J2405; J3475